=== PATIENT | male | born 1995 | race Hispanic/Latino ===

== ENCOUNTER 2020-08-13 16:30 | Emergency (ER) | payer SELFPAY ==
[2020-08-13 17:37] LABS: Urine Blood Negative (Negative); Urine Glucose Negative (Negative); Urine Protein Negative (Negative); Urine Specific Gravity >=1.030 (1.005-1.030)
--- NOTE | 2020-08-13 18:15 | RAD REPORT ---
EXAM DESCRIPTION: US - Scrotum Testicles - 08/13/2020 5:59 pm CLINICAL HISTORY: PAIN COMPARISON: No comparisons FINDINGS: No testicular masses. Doppler evaluation shows normal blood flow within the bilateral test icular tissue. No epididymis enlargement or hyperemia. No extratesticular abnormality seen. No abnorm al scrotal wall thickening or edema. IMPRESSION: Unremarkable scrotal ultrasound.
--- NOTE | 2020-08-13 18:49 | RAD REPORT ---
EXAM DESCRIPTION: CT - Abdomen Pelvis Wo Contrast - 08/13/2020 6:21 pm CLINICAL HISTORY: ABD PAIN COMPARISON: No comparisons TECHNIQUE: Axial [address] imaging of the abdomen and pelvis was performed without IV contrast. No IV contrast was given because of allergy, abnormal renal function, patient refusal or physician re quest. No oral contrast. All CT scans are performed using dose optimization technique as appropriate and may include automated exposure control or mA/KV adjustment according to patient size. FINDINGS: No suspicious findings in the lung bases. The liver, spleen and pancreas show no suspicious findings on non-contrast imaging. Gallbladder is co ntracted. Gallstones can be occult. No biliary tree dilatation. No hydronephrosis or suspicious renal mass. No significant adrenal finding. Isodense renal masses an d pyelonephritis cannot be excluded in the absence of IV contrast. The urinary bladder is without sig nificant finding. No dilated bowel loops or bowel wall thickening. Appendix is normal. No free air, free fluid or infla mmatory stranding. No mass or bulky lymphadenopathy. A small fat only right inguinal hernia is presen t. No congested or edematous fat. No bowel involvement. No suspicious bony findings. IMPRESSION: Small fat only right inguinal hernia with no acute component. Contracted gallbladder. No biliary tree dilatation. Gallstones can be occult. Full assessment is limited is the absence of IV contrast.
--- NOTE | 2020-08-13 18:55 | ER ---
Nurse's Notes [facility] Name: Bahman Miranda Age: 25 yrs Sex: Male : 1995 Arrival Date: 08/13/2020 Time: 16:33 Bed 5 Private MD: Diagnosis: Unilateral inguinal hernia, without obstruction or gangrene Presentation: 08/13 16:46 Chief complaint: Patient states: went to [place] yesterday and was told he had a em inguinal hernia, has pain that comes and goes, did not do any imaging, doctor in [place] was able to reduce the hernia and was told he needed surgery. Coronavirus screen: Client denies travel out of the [place] in the last 14 days. Ebola Screen: Patient negative for fever greater than or equal to 101.5 degrees Fahrenheit, and additional compatible Ebola Virus Disease symptoms Patient denies exposure to infectious person. Patient denies travel to an Ebola-affected area in the 21 days before illness onset. No symptoms or risks identified at this time. Initial Sepsis Screen: Does the patient meet any 2 criteria? No. Patient's initial sepsis screen is negative. Does the patient have a suspected source of infection? No. Patient's initial sepsis screen is negative. Risk Assessment: Do you want to hurt yourself or someone else? Patient reports no desire to harm self or others. Onset of symptoms was August 13, 2020. 16:46 Method Of Arrival: Ambulatory em 16:46 Acuity: YOLANDA 3 em Historical: - Allergies: 16:49 No Known Allergies; em - PMHx: 16:49 None; em - PSHx: 16:49 None; em - Immunization history:: Adult Immunizations up to date. - Social history:: Smoking status: Patient reports the use of cigarette tobacco products, denies chronic smoking, but will smoke occasionally. Screenin:19 Abuse screen: Denies threats or abuse. Denies injuries from another. Nutritional kg screening: No deficits noted. Tuberculosis screening: No symptoms or risk factors identified. Fall Risk None identified. No fall in past 12 months (0 pts). No secondary diagnosis (0 pts). No IV (0 pts). Ambulatory Aid- None/Bed Rest/Nurse Assist (0 pts). Gait- Normal/Bed Rest/Wheelchair (0 pts) Mental Status- Oriented to own ability (0 pts). Total Bey Fall Scale indicates No Risk (0-24 pts). Assessment: 17:01 General: Appears in no apparent distress. Behavior is calm, cooperative, appropriate kg for age, quiet. Pain: Complains of pain in groin, right femoral area, left femoral area and suprapubic area Pain radiates to left inner thigh and left upper thigh Pain currently is 1 out of 10 on a pain scale. at worst was 7 out of 10 on a pain scale. level that patient reports is acceptable is 1 out of 10 on a pain scale. Quality of pain is described as twisting, sharp, shooting. Neuro: No deficits noted. Level of Consciousness is awake, alert, obeys commands, Oriented to person, place, time, situation, Appropriate for age. Cardiovascular: No deficits noted. Respiratory: No deficits noted. GI: Pt stated, "sometimes when I push the hernia back in it will cause a tingling in my mouth then I throw up.". : No deficits noted. : Reports Scrotal pain: sudden onset Pt stated, "the pain has been going on for awhile but got worse in the last three days.". EENT: No deficits noted. Derm: No deficits noted. Musculoskeletal: No deficits noted. Vital Signs: 16:46 BP 146 / 100; Pulse 107; Resp 18; Temp 98.7; Pulse Ox 99% on R/A; Weight 90.72 kg; em Height 6 ft. 5 in. (195.58 cm); Pain 0/10; 18:00 BP 129 / 91; Pulse 91; Resp 20; Pulse Ox 100% on R/A; kg 19:30 BP 129 / 91; Pulse 91; Resp 20; Pulse Ox 100% on R/A; kg 16:46 Body Mass Index 23.72 (90.72 kg, 195.58 cm) em ED Course: 16:33 Patient arrived in ED. mr 16:43 [facility]C [facility] kb 16:43 Edin Valdez MD is Attending Physician. kb 16:48 Triage completed. em 16:49 Arm band placed on. em 17:00 Bernice Reinoso is Primary Nurse. kg 17:20 Patient has correct armband on for positive identification. Placed in gown. Bed in low kg position. Call light in reach. Side rails up X 1. 17:20 No provider procedures requiring assistance completed. kg 17:59 US Scrotum Testicles In Process Unspecified. EDMS 18:21 CT Abd/Pelvis - Without Contrast In Process Unspecified. EDMS 19:32 Patient did not have IV access during this emergency room visit. kg Administered Medications: No medications were administered Outcome: 18:54 Discharge ordered by . amilcar 19:32 Discharged to home ambulatory. kg 19:32 Condition: good 19:32 Discharge instructions given to patient, family, Instructed on discharge instructions, follow up and referral plans. Demonstrated understanding of instructions, follow-up care. 19:33 Patient left the ED. kg Signatures: Dispatcher [employer] EDChio Duvall, SAND MIXER-C SAND MIXER-Jenelle Montgomery Edgar, RN RN Bernice Arredondo kg Corrections: (The following items were deleted from the chart) 16:51 16:46 Chief complaint: Patient states: went to [place] yesterday and was told he had a em inguinal hernia, has pain that comes and goes em
--- NOTE | 2020-08-13 18:55 | EDPHYS ---
Physician Documentation [facility] Name: Bahman Miranda Age: 25 yrs Sex: Male : 1995 Arrival Date: 08/13/2020 Time: 16:33 Bed 5 Private MD: ED Physician Edin Valdez HPI: 08/13 23:50 This 25 yrs old Male presents to ER via Ambulatory with complaints of hernia. kb 23:50 The patient presents with scrotal pain, of both sides, tenderness. Onset: The kb symptoms/episode began/occurred yesterday. Modifying factors: The symptoms are alleviated by nothing, the symptoms are aggravated by pressure. Associated signs and symptoms: The patient has no apparent associated signs or symptoms. Severity of symptoms: At their worst the symptoms were moderate, in the emergency department the symptoms are unchanged. The patient has not experienced similar symptoms in the past. The patient has been recently seen by a physician:. Pt reports testicular pain that started yesterday. Went to [place] [facility] and they told him he had an inguinal hernia, reduced it and told him to follow up with Dr Vitale. Pt states he has an US scheduled for 08/19. States they told him he couldn't go back to work until this was fixed so he came to get it evaluated here. States they did not do any testing at [place]. Historical: - Allergies: 16:49 No Known Allergies; em - PMHx: 16:49 None; em - PSHx: 16:49 None; em - Immunization history:: Adult Immunizations up to date. - Social history:: Smoking status: Patient reports the use of cigarette tobacco products, denies chronic smoking, but will smoke occasionally. ROS: 23:48 Constitutional: Negative for fever, chills, and weight loss. kb 23:48 : Positive for testicular pain Negative for urinary symptoms. 23:48 All other systems are negative. Exam: 23:48 Constitutional: This is a well developed, well nourished patient who is awake, alert, kb and in no acute distress. Head/Face: Normocephalic, atraumatic. Cardiovascular: Regular rate and rhythm with a normal S1 and S2. No gallops, murmurs, or rubs. No pulse deficits. Respiratory: Respirations even and unlabored. No increased work of breathing, no retractions or nasal flaring. Abdomen/GI: Soft, non-tender. No distention Skin: Warm, dry with normal turgor. Normal color. MS/ Extremity: Pulses equal, no cyanosis. Neurovascular intact. Full, normal range of motion. Neuro: Awake and alert, GCS 15, oriented to person, place, time, and situation. Moves all extremities. Normal gait. Psych: Awake, alert, with orientation to person, place and time. Behavior, mood, and affect are within normal limits. 23:48 : Male external genitalia: normal, tenderness, of the left testicle and right testicle is noted, that is moderate. Vital Signs: 16:46 BP 146 / 100; Pulse 107; Resp 18; Temp 98.7; Pulse Ox 99% on R/A; Weight 90.72 kg; em Height 6 ft. 5 in. (195.58 cm); Pain 0/10; 18:00 BP 129 / 91; Pulse 91; Resp 20; Pulse Ox 100% on R/A; kg 19:30 BP 129 / 91; Pulse 91; Resp 20; Pulse Ox 100% on R/A; kg 16:46 Body Mass Index 23.72 (90.72 kg, 195.58 cm) em MDM: 16:55 Patient medically screened. kb 18:51 Data reviewed: vital signs, nurses notes. Data interpreted: Pulse oximetry: on room air kb is 99 %. Interpretation: normal. Counseling: I had a detailed discussion with the patient and/or guardian regarding: the historical points, exam findings, and any diagnostic results supporting the discharge/admit diagnosis, lab results, radiology results, the need for outpatient follow up, a general surgeon, to return to the emergency department if symptoms worsen or persist or if there are any questions or concerns that arise at home. 08/13 17:37 Order name: Urine Dipstick-Ancillary; Complete Time: 17:47 EDMS 08/13 17:06 Order name: US Scrotum Testicles; Complete Time: 18:16 kb 08/13 17:06 Order name: CT Abd/Pelvis - Without Contrast; Complete Time: 18:50 kb 08/13 17:06 Order name: Urine Dipstick-Ancillary (obtain specimen); Complete Time: 18:20 kb Administered Medications: No medications were administered Disposition: 08/14 13:17 Co-signature as Attending Physician, Edin Valdez MD I agree with the assessment and kdr plan of care. Disposition: 08/13/20 18:54 Discharged to Home. Impression: Unilateral inguinal hernia, without obstruction or gangrene. - Condition is Stable. - Discharge Instructions: Inguinal Hernia, Adult, [id number]. - Work release form, Family Work Release, Medication Reconciliation Form, Thank You Letter, Antibiotic Education, Prescription Opioid Use form. - Follow up: Emergency Department; When: As needed; Reason: Worsening of condition. Follow up: Private Physician; When: 2 - 3 days; Reason: Recheck today's complaints, Continuance of care, Re-evaluation by your physician. Signatures: Dispatcher [employer] EDMS Chio Hernandez, PAYROLL BENEFITS CLERK-C PAYROLL BENEFITS CLERK-Edin Burk MD MD [facility] Adithya Austin RN RN Bernice Arredondo kg Corrections: (The following items were deleted from the chart) 08/13 19:33 18:54 08/13/2020 18:54 Discharged to Home. Impression: Unilateral inguinal hernia, kg without obstruction or gangrene. Condition is Stable. Forms are Medication Reconciliation Form, Thank You Letter, Antibiotic Education, Prescription Opioid Use. Follow up: Emergency Department; When: As needed; Reason: Worsening of condition. Follow up: Private Physician; When: 2 - 3 days; Reason: Recheck today's complaints, Continuance of care, Re-evaluation by your physician. kb
[2020-08-13 19:38] VITALS: TEMP 98.7
[2020-08-13 19:39] VITALS: BP 129/91; O2SAT 100
== END 2020-08-13 19:33 | disposition home or self-care (01) ==
LOC: ER 16:30
DX: K40.90 Unilateral inguinal hernia, without obstruction or gangrene, not specified as recurrent (principal); F17.210 Nicotine dependence, cigarettes, uncomplicated
CPT/HCPCS: 74176; 76870; 81003; 99283